=== PATIENT | female | born 1990 | race Caucasian/White ===

== ENCOUNTER 2018-01-04 17:04 | Emergency (ER) | payer OTHER ==
[~2018-01-04] VITALS: Ht 162.6 cm; Wt 97.1 kg
[~2018-01-04 17:04] MED LIST: AMPICILLIN; BACTRIM DS TAB1 EACH PO; HYDROCODON-ACE1 EAC7; NOHOMEMEDICATIONS; OSELB75 PO; PHENAZOPYRIDIN200 M2 PO; PHENERGAN 25 MG25 M1 PO; PHENERGAN 25 MG25 MG PO; PRILOSEC40 MG PO; VICODIN 5-5001 EACH PO
[2018-01-04] MEDS ORDERED: BACTRIM DS TAB1 EACH PO (17:59)
[2018-01-04] MEDS ORDERED: PROBIOTIC1 EAC1 PO (17:59)
[2018-01-04] MEDS ORDERED: KEFLEX500 M1 PO (17:59)
[2018-01-04 18:00] VITALS: BP 136/90
== END 2018-01-04 18:14 | disposition home or self-care (01) ==
LOC: M.ERS 17:04
DX: L02.422 Furuncle of left axilla (principal); L02.421 Furuncle of right axilla; Z90.49 Acquired absence of other specified parts of digestive tract